=== PATIENT | female | born 1955 | race American Indian/Alaskan Native ===

== ENCOUNTER 2021-10-04 08:39 | Outpatient (CLI) | payer OTHER ==
--- NOTE | 2021-10-05 08:00 | Mammography Report ---
DIGITAL SCREENING MAMMOGRAM WITH CAD, 10/04/2021 CLINICAL INFORMATION / INDICATION: Routine screening mammography. TECHNIQUE: Digital 2D mammography was obtained in the craniocaudal and mediolateral oblique projecti ons. This examination was interpreted with the benefit of Computer-Aided Detection analysis. COMPARISON: 06/30/2014. FINDINGS: Breast Density: There are scattered areas of fibroglandular density. No dominant mass, suspicious calcifications, or architectural distortion in either breast. Postbiopsy change right breast. IMPRESSION: No mammographic evidence of malignancy. Follow up recommendation: Routine yearly BI-RADS Category 2: BENIGN. A "normal" or negative report should not discourage follow up or biopsy of a clinically significant f inding. A written summary of these findings will be mailed to the patient. The patient will be entered into a mammography reporting system which will generate a reminder letter for the patient's next appointmen t at the appropriate interval. The [employer] recommends yearly mammograms starting at age 40 and continuing as l sara as a woman is in good health. Breast MRI is recommended for women with an approximate 20-25% or greater lifetime risk of breast cancer, including women with a strong family history of breast or ova desmond cancer or who have been treated for Hodgkin's disease. Signer Name: Miguel Peguero MD Signed: 10/05/2021 7:56 AM Workstation Name: [id number]
== END 2021-10-04 08:40 | disposition home or self-care (01) ==
LOC: SPVWC 08:39
PROVIDERS: ATTEND Internal Medicine
DX: Z12.31 Encounter for screening mammogram for malignant neoplasm of breast (principal)
CPT/HCPCS: 77067